=== PATIENT | male | born 1965 | race Caucasian/White ===

== ENCOUNTER 2020-07-05 03:49 | Emergency (ER) | payer OTHER ==
[~2020-07-05] VITALS: Ht 167.6 cm; Wt 111.1 kg
[2020-07-05] MEDS ORDERED: METOPROLOL TART25 MG PO (04:12)
[2020-07-05] MEDS ORDERED: PREDNISONE20 MG PO (04:19)
== END 2020-07-05 05:09 | disposition home or self-care (01) ==
LOC: ED 03:49
DX: M10.9 Gout, unspecified (principal); I48.91 Unspecified atrial fibrillation; Z88.0 Allergy status to penicillin; Z79.899 Other long term (current) drug therapy
CPT/HCPCS: 99283; J7512